=== PATIENT | female | born 1980 | race Caucasian/White ===

== ENCOUNTER 2016-10-29 05:26 | Emergency (ER) | payer SELFPAY ==
[~2016-10-29] VITALS: Ht 154.9 cm; Wt 80.0 kg
[~2016-10-29 05:26] MED LIST: IBUP600 PO; PREN0.01 PO
[2016-10-29 05:29] VITALS: BP 125/61; PULSE 73; RESP 16; TEMP 98.1; O2SAT 98
--- NOTE | 2016-10-29 05:52 | PD ---
HPI Chief Complaint: Injury Time Seen by Provider: 05:44 Travel History International Travel<30 days: No Contact w/Intl Traveler<30days: No Traveled to known affect area: No History of Present Illness HPI 36-year-old female presents for evaluation of the shoulder pain. She reports that a few months ago she fell on her left shoulder. The pain had mostly subsided until 2 weeks ago when her dog pulled on her leash while the patient was holding it. Since then the patient has had increased pain in her left shoulder and she points at her glenohumeral joint as the location of the pain. The pain is an aching pain that is worse with range of motion activities. She has tried using [id number] pain medications but symptoms persist which prompted evaluation. She has no other complaints at this time. PFSH Past Medical History Depression: Yes Diminished Hearing: No Immunizations Current: No Tetanus Vaccination: < 5 Years Influenza Vaccination: No ?: Not LMP: IUD Menopausal: Yes : 4 Para: 2 Miscarriage: 0 : 2 Past Surgical History Tonsillectomy: Yes Other Surgery: No Social History Alcohol Use: No Tobacco Use: No Substance Use: No Allergies-Medications (Allergen,Severity, Reaction): Coded Allergies: Darvocet-N 100 (Verified Allergy, Severe, HIVES, 10/29/16) Lexapro (Verified Allergy, Severe, SWELLING, 10/29/16) Penicillin (Verified Allergy, Severe, Anaphylaxis, 10/29/16) Zofran (Verified Allergy, Intermediate, Rash, 10/29/16) Reported Meds & Prescriptions Reported Meds & Active Scripts Active Flexeril (Cyclobenzaprine HCl) 10 Mg Tab 10 Mg PO TID PRN 10 Days Ibuprofen 800 Mg Tab 800 Mg PO Q6HR PRN Review of Systems Except as stated in HPI: all other systems reviewed are Neg Physical Exam Narrative GENERAL: Well-developed well-nourished female in no acute distress SKIN: Warm and dry. No bruising or soft tissue swelling CARDIOVASCULAR: Regular rate and rhythm. No murmur appreciated. RESPIRATORY: No accessory muscle use. Clear to auscultation. Breath sounds equal bilaterally. GASTROINTESTINAL: Abdomen soft, non-tender, nondistended. Hepatic and splenic margins not palpable. MUSCULOSKELETAL: No obvious deformities. There is tenderness to palpation to the left glenohumeral joint. The patient is hesitant to perform range of motion activities passively or actively utilizing the left shoulder limiting examination at this time. Distal sensation and pulses are intact. Data Data Last Documented VS Vital Signs Date Time Temp Pulse Resp B/P Pulse Ox O2 Delivery O2 Flow Rate FiO2 10/29/16 06:56 16 10/29/16 05:29 98.1 73 125/61 98 Orders Shoulder, Limited(2vws) (10/29/16 ) Ketorolac Inj (Toradol Inj) (10/29/16 06:00) MDM Medical Decision Making Medical Screen Exam Complete: Yes Emergency Medical Condition: Yes Medical Record Reviewed: Yes Differential Diagnosis Left shoulder strain, rotator cuff tear, proximal humeral fracture, acromioclavicular separation, clavicle fracture Narrative Course This is a 36-year-old female who initially injured her left shoulder when she fell on it a few months ago. She reinjured it 2 weeks ago when her dog pulled on her leash. On examination she has limited passive and active range of motion limiting full examination and certainly suspicious for rotator cuff strain, tear. X-ray imaging of the left shoulder will be obtained and Toradol injection will be initiated. The patient will be encouraged to follow-up with her primary care physician for outpatient MRI imaging. 0700: At the end of my shift pending x-ray imaging the patient was signed out to Laisha Luna to follow- up on the results. Scripts Cyclobenzaprine (Flexeril)10 Mg Tab10 Mg PO TID PRN (MUSCLE SPASM) 10 Days Ref 0 Prov:Laisha Bergman 10/29/16 Ibuprofen 800 Mg [id number] Mg PO Q6HR PRN (PAIN) #30 TAB Ref 0 Prov:Elise Blanco MD 10/29/16 Evan Goodman Oct 29, 2016 05:52
[2016-10-29] MEDS ORDERED: IBUP800T23 PO (05:54)
[2016-10-29] MEDS ORDERED: KETOROLAC TROMETHAMINE 60 MG/2 ML (IM) VIAL IM ONE (06:00)
[2016-10-29 06:56] VITALS: RESP 16
--- NOTE | 2016-10-29 07:13 | RADRPT ---
EXAM DATE/TIME: 10/29/2016 06:43 [facility] COMPARISON: No previous studies available for comparison. INDICATIONS : Left shoulder pain after fall. MEDICAL HISTORY : None. SURGICAL HISTORY : None. ENCOUNTER: Initial ACUITY: 2 weeks PAIN SCORE: 7/10 LOCATION: Left proximal shoulder FINDINGS: Two view examination of the left shoulder demonstrates no evidence of fracture or dislocation. The g lenohumeral and acromioclavicular joints are maintained. Bony mineralization is normal. CONCLUSION: Unremarkable limited examination of the left shoulder. Praveen Vega MD on October 29, 2016 at 7:11 Board Certified Radiologist. This report was verified electronically.
--- NOTE | 2016-10-29 07:37 | PD ---
Physical Exam Date Seen by Provider: Oct 29, 2016 Narrative For full history and physical examination please see previous provider's note. Imaging was pending at the end of previous provider shift, I assumed care of patient at change of shift. Data Data Last Documented VS Vital Signs Date Time Temp Pulse Resp B/P Pulse Ox O2 Delivery O2 Flow Rate FiO2 10/29/16 06:56 16 10/29/16 05:29 98.1 73 125/61 98 Orders Shoulder, Limited(2vws) (10/29/16 ) Ketorolac Inj (Toradol Inj) (10/29/16 06:00) [facility] Medical Record Reviewed: Yes Supervised Visit with JENNIFER: No Interpretation(s) Last Impressions Shoulder X-Ray 10/29/16 0000 Signed Impressions: Service Date/Time: Saturday, October 29, 2016 06:43 - CONCLUSION: Unremarkable limited examination of the left shoulder. Praveen Vega MD Vital Signs Date Time Temp Pulse Resp B/P Pulse Ox O2 Delivery O2 Flow Rate FiO2 10/29/16 06:56 16 10/29/16 05:29 98.1 73 16 125/61 98 Differential Diagnosis Fracture versus sprain versus strain versus rotator cuff injury versus AC joint separation versus other Narrative Course Patient is a 36-year-old female who presented to emergency department for evaluation of shoulder pain is been ongoing since a fall 2 months ago. Imaging was ordered by previous provider to rule out acute abnormality. Imaging was negative. Patient will be discharged home with anti-inflammatory medication. She is encouraged to follow-up with primary doctor or orthopedic surgeon for further evaluation and management should her pain persist. She would likely benefit from an MRI if pain does continue. Patient should continue range of motion exercises, apply warm moist heat to affected area. She is encouraged to return to emergency department for any new or worsening symptoms. Patient is stable for discharge. Diagnosis Primary Impression: Shoulder pain Qualified Code: M25.512 - Left shoulder pain, unspecified chronicity Referrals: Orthopaedic Surgeon Primary Care Physician Patient Instructions: General Instructions, Shoulder Pain (ED) Additional Instruction: Follow-up with her primary doctor Follow-up with an orthopedic surgeon for further evaluation management Take medication as directed Continue range of motion exercises, apply warm moist heat to affected area, you may trial xiac-ivb-ugtigas topical analgesic such as BenGay or Biofreeze and use as directed Return to emergency department for any new or worsening symptoms Med/Other Pt SpecificInfo: Prescription(s) given Scripts Cyclobenzaprine (Flexeril)10 Mg Tab10 Mg PO TID PRN (MUSCLE SPASM) 10 Days Ref 0 Prov:Laisha Bergman 10/29/16 Ibuprofen 800 Mg [id number] Mg PO Q6HR PRN (PAIN) #30 TAB Ref 0 Prov:Elise Blanco MD 10/29/16 Disposition: 01 DISCHARGE HOME Condition: Stable Laisha Bergman Oct 29, 2016 07:37
[2016-10-29] MEDS ORDERED: CYCL1TAB29 PO (07:39)
[2016-12-25] MEDS ORDERED: CYCL1TAB29 PO ×2 (14:19→14:21)
[2016-12-31] MEDS ORDERED: CYCL1TAB29 PO (16:09)
[2016-12-31] MEDS ORDERED: BUSP1TAB PO (16:13)
== END 2016-10-29 08:00 | disposition home or self-care (01) ==
LOC: NEPB 05:26
DX: M25.512 Pain in left shoulder (principal); W19.XXXA Unspecified fall, initial encounter
CPT/HCPCS: 73030; 96372; 99283; J1885

== ENCOUNTER 2016-12-12 21:08 | Emergency (ER) | payer SELFPAY ==
[~2016-12-12] VITALS: Ht 154.9 cm; Wt 91.0 kg
[~2016-12-12 21:08] MED LIST changes: +CYCL1TAB29 PO; -IBUP600 PO; +IBUP800T23 PO; -PREN0.01 PO
[2016-12-12 21:12] VITALS: BP 130/81; PULSE 90; RESP 16; TEMP 96; O2SAT 96
--- NOTE | 2016-12-12 21:25 | PD ---
HPI Chief Complaint: Injury Time Seen by Provider: 21:25 Travel History International Travel<30 days: No Contact w/Intl Traveler<30days: No Traveled to known affect area: No History of Present Illness HPI 36-year-old female with history of left shoulder injury, presents to emergency department for evaluation of exacerbation of left shoulder pain. Patient states she was helping her when he went for lobar. She went to catch him and this pulled on her left shoulder. She states she now has severe, constant, throbbing pain in the left shoulder. This is exacerbated by movement. Denies any alterations in sensation the distal affected extremity. She has no other symptoms to report. PFSH Past Medical History Depression: Yes Diminished Hearing: No Immunizations Current: No ?: Not LMP: IUD Menopausal: Yes : 4 Para: 2 Miscarriage: 0 : 2 Past Surgical History Tonsillectomy: Yes Other Surgery: No Social History Alcohol Use: No Tobacco Use: No Substance Use: No Allergies-Medications (Allergen,Severity, Reaction): Coded Allergies: Darvocet-N 100 (Verified Allergy, Severe, HIVES, 12/12/16) Lexapro (Verified Allergy, Severe, SWELLING, 12/12/16) Penicillin (Verified Allergy, Severe, Anaphylaxis, 12/12/16) Zofran (Verified Allergy, Intermediate, Rash, 12/12/16) Reported Meds & Prescriptions Reported Meds & Active Scripts Active Mobic (Meloxicam) 15 Mg Tab 15 Mg PO DAILY PRN do not take with other nsaid medications Flexeril (Cyclobenzaprine HCl) 10 Mg Tab 10 Mg PO TID PRN 10 Days Ibuprofen 800 Mg Tab 800 Mg PO Q6HR PRN Review of Systems Except as stated in HPI: all other systems reviewed are Neg Physical Exam Narrative GENERAL: Well-nourished, well-developed female patient in no acute distress SKIN: Warm and dry. HEAD: Normocephalic. Atraumatic EYES: No scleral icterus. No injection or drainage. NECK: Supple, trachea midline. No JVD or lymphadenopathy. CARDIOVASCULAR: Regular rate and rhythm without murmurs, gallops, or rubs. RESPIRATORY: Breath sounds equal bilaterally. No accessory muscle use. MUSCULOSKELETAL: No cyanosis, or edema. No obvious deformity of the left shoulder. Patient is willing her left upper extremity across her abdomen, flex at the elbow. Distal pulses are palpable. Cap refills within normal limits. Slab Worker strength is equal bilateral. With passive range of motion I am able to abduct, internally, externally rotate the left shoulder except the patient reports severe pain with this. Data Data Last Documented VS Vital Signs Date Time Temp Pulse Resp B/P Pulse Ox O2 Delivery O2 Flow Rate FiO2 12/12/16 22:51 89 16 156/62 97 12/12/16 21:46 Room Air 12/12/16 21:12 96.0 Orders Ketorolac Inj (Toradol Inj) (12/12/16 21:45) Shoulder, Limited(2vws) (12/12/16 ) Ice / Cold Pack PRN (12/12/16 21:44) Splint Or Brace Apply/Monitor (12/12/16 22:25) Sling Cradle Arm (12/12/16 ) MDM Medical Decision Making Medical Screen Exam Complete: Yes Emergency Medical Condition: Yes Medical Record Reviewed: Yes Differential Diagnosis Tendon injury versus sprain versus fracture versus dislocation versus osteoarthritis Narrative Course 36 year-old female presents to the emergency department for evaluation left shoulder pain. X-ray imaging is without acute bony abnormality. Patient is offered a sling. She is counseled on care. She agrees to return immediately with any acute worsening of symptoms. Diagnosis Primary Impression: Shoulder pain Qualified Code: M25.512 - Chronic left shoulder pain Referrals: Orthopaedic Surgeon Primary Care Physician Patient Instructions: General Instructions, Shoulder Pain (ED), Shoulder Separation Exercises (GEN) Departure Forms: Tests/Procedures, Work Release Enter return to work date: Dec 15, 2016 Additional Instructions: Ice and/or warm receiving help to alleviate symptoms Follow-up primary care provider Sling for support. Daily range of motion exercises if you're going to wear sling. Do not sleep in your sling. Follow-up with orthopedic shoe fitter Outpatient MRI may be warranted Return immediately to the emergency department with any acute worsening of symptoms Med/Other Pt SpecificInfo: Prescription(s) given Scripts Meloxicam (Mobic)15 Mg Tab15 Mg PO DAILY PRN (PAIN SCALE 1 TO 10) #15 TAB Ref 0 do not take with other nsaid medications Prov:Marti Moralez 12/12/16 Disposition: 01 DISCHARGE HOME Condition: Stable Marti Moralez Dec 12, 2016 21:25
[2016-12-12] MEDS ORDERED: KETOROLAC TROMETHAMINE 60 MG/2 ML (IM) VIAL IM ONE (21:45)
--- NOTE | 2016-12-12 22:22 | RADRPT ---
EXAM DATE/TIME: 12/12/2016 21:52 [facility] COMPARISON: SHOULDER LEFT LTD (2VWS), October 29, 2016, 6:43. INDICATIONS : Patient tried to catch someone from falling and landed on left shoulder. Patient states they injured left shoulder prior. Left shoulder pain. MEDICAL HISTORY : None. SURGICAL HISTORY : None. ENCOUNTER: Initial ACUITY: 1 day PAIN SCORE: 8/10 LOCATION: Left Shoulder FINDINGS: Two view examination of the left shoulder demonstrates no evidence of fracture or dislocation. The g lenohumeral and acromioclavicular joints are maintained. Bony mineralization is normal. CONCLUSION: No acute disease. Chandana Guerrero MD on December 12, 2016 at 22:20 Board Certified Radiologist. This report was verified electronically.
[2016-12-12] MEDS ORDERED: MOBI15TA PO (22:31)
[2016-12-12 22:51] VITALS: BP 156/62
[2016-12-25] MEDS ORDERED: CYCL1TAB29 PO ×2 (14:19→14:21)
[2016-12-31] MEDS ORDERED: CYCL1TAB29 PO (16:09)
[2016-12-31] MEDS ORDERED: BUSP1TAB PO (16:13)
== END 2016-12-12 22:51 | disposition home or self-care (01) ==
LOC: NEPB 21:08
DX: M25.512 Pain in left shoulder (principal); G89.29 Other chronic pain
CPT/HCPCS: 73030; 96372; 99283; J1885